=== PATIENT | male | born 1995 | race Caucasian/White ===

== ENCOUNTER 2017-02-26 14:08 | Emergency (ER) | payer OTHER ==
[~2017-02-26] VITALS: Ht 182.9 cm; Wt 78.5 kg
[~2017-02-26 14:08] MED LIST: AMPH10CA3 PO
[2017-02-26 14:25] VITALS: TEMP 36.6; Ht 182.9 cm; Wt 78.5 kg
[2017-02-26 15:06] LABS: BASO % 0.3 %; BASO ABS # 0.03 K/uL (0-0.2); COMPLETE YES; EOS % 0.9 %; HEMATOCRIT 42.6 % (42-52); IG% 0.2 %; LYMPH % 13.1 %; LYMPH ABS # 1.15 K/uL (1.2-3.4); MEAN CELL VOLUME 92.6 fL (80-100); MEAN CORPUSCULAR HEMOGLOBIN 32.6 pg (25-34); MEAN CORPUSCULAR HGB CONC 35.2 g/dl (32-36); MEAN PLATELET VOLUME 9.1 fL (7.4-10.4); MONO % 7.2 %; NEUT % 78.3 %; PLATELET COUNT 232 K/uL (130-400)
[2017-02-26 15:07] VITALS: O2SAT 99
[2017-02-26 15:29] LABS: CALCIUM 9.1 mg/dl (8.5-10.1)
[2017-02-26] MEDS ORDERED: AMPH20TA2 PO (15:38)
[2017-02-26 15:50] LABS: BUN/CREATININE RATIO 9.8 (10-20); CREATININE 0.83 mg/dl (0.60-1.40); POTASSIUM 4.2 mmol/L (3.5-5.1)
[2017-02-26] MEDS ORDERED: OPTIRAY 320 IV PRN (16:15)
--- NOTE | 2017-02-26 16:49 | DIAGNOSTIC IMAGING REPORT ---
CT ANGIOGRAPHY OF THE CHEST, PULMONARY EMBOLUS PROTOCOL CLINICAL HISTORY: Chest pain. COMPARISON STUDY: No previous studies for comparison. TECHNIQUE: Following IV administration of 95 mL of Optiray-320, helical axial images of the chest were obtained utilizing the pulmonary embolus protocol. Maximal intensity projections and sagittal and coronal reformats were viewed on an independent 3D workstation. IV contrast was administered without complication. CT DOSE: 292.01 mGy.cm FINDINGS: No pulmonary emboli are identified. There is no evidence of thoracic aortic dissection. The size of the heart is normal. There is no pericardial effusion. There is no pneumomediastinum. No enlarged thoracic lymph nodes are present. There is a trace left pleural effusion. Associated opacity favors atelectasis. There is no airspace consolidation to suggest pneumonia. Central airways are patent. Bony thorax and upper abdomen are unremarkable. IMPRESSION: 1. No pulmonary emboli identified. 2. Trace left pleural effusion. Electronically signed by: Rob Castaneda M.D. 02/26/2017 4:47 PM Dictated Date/Time: 02/26/2017 4:41 PM
--- NOTE | 2017-02-26 17:31 | EMERGENCY ROOM VISIT NOTE ---
History Report prepared by Tish: Carlita Lua Under the Supervision of: Dr. Benjamin Trivedi D.O. First contact with patient: 14:30 Chief Complaint: CARDIAC ASSESSMENT Stated Complaint: CHEST PAIN History of Present Illness The patient is a 21 year old male who presents to the Emergency Room with complaints of persistent left sided chest pain that began four days ago. He currently rates his discomfort as a 5/10 in severity. The patient states that on Friday night he was wrestling and then developed left sided chest pain the next day. He states that his pain is worsened with coughing or laughing. The patient describes his pain as a tightness in his left chest, but states that when he coughs or laughs, he develops a sharp stabbing pain. The patient states that he went to [facility] today and was referred to the emergency department for further testing. He states that he had a chest x-ray done, but no blood work. The patient states that two weeks ago he flew back from [place]. The patient denies any pain or swelling to his lower extremities. He states that his grandmother from heart disease. Source of History: patient Onset: four days ago Position: chest (left) Symptom Intensity: 5/10 Quality: sharp, stabbing, other (tightness) Timing: other (persistent) Review of Systems See HPI for pertinent positives & negatives. A total of 10 systems reviewed and were otherwise negative. Past Medical & Surgical Medical Problems: (1) No Known Active Medical Problems Family History Heart disease Social History Smoking Status: Current Every Day Smoker Marital Status: single Housing Status: lives with roommate Occupation Status: [employer] student Current/Historical Medications Scheduled Amphetamine-Dextroamphetamine 20MG (Adderall 20MG), 20 MG PO BID Allergies Coded Allergies: No Known Allergies (Unverified , 02/26/17) Physical Exam Vital Signs Date Time Temp Pulse Resp B/P Pulse Ox O2 Delivery O2 Flow Rate FiO2 02/26/17 17:12 73 16 97 Room Air 02/26/17 16:05 65 18 127/99 99 Room Air 02/26/17 15:18 99 Room Air 02/26/17 15:14 72 02/26/17 15:07 69 16 126/80 98 Room Air 02/26/17 15:07 99 Room Air 02/26/17 14:25 36.6 76 18 123/75 98 Room Air Physical Exam CONSTITUTIONAL/VITAL SIGNS: Reviewed / noted above. GENERAL: Non-toxic in appearance. INTEGUMENTARY: Warm, dry, and [place]. HEAD: Normocephalic. EYES: without scleral icterus or trauma. ENT/OROPHARYNX: clear and moist. LYMPHADENOPATHY/NECK: Is supple without lymphadenopathy or meningismus. RESPIRATORY: Lungs clear and equal. CARDIOVASCULAR: Regular rate and rhythm. GI/ABDOMEN: Soft and nontender. No organomegaly or pulsatile mass. No rebound or guarding. Normal bowel sounds. EXTREMITIES: Warm and well perfused. BACK: No CVA tenderness. NEUROLOGICAL: Intact without focal deficits. PSYCHIATRIC: normal affect. MUSCULOSKELETAL: Normally developed with good muscle tone. Medical Decision & Procedures ER Provider Diagnostic Interpretation: CT results as stated below per my review and radiologist interpretation: CT ANGIOGRAPHY OF THE CHEST, PULMONARY EMBOLUS PROTOCOL CLINICAL HISTORY: Chest pain. COMPARISON STUDY: No previous studies for comparison. TECHNIQUE: Following IV administration of 95 mL of Optiray-320, helical axial images of the chest were obtained utilizing the pulmonary embolus protocol. Maximal intensity projections and sagittal and coronal reformats were viewed on an independent 3D workstation. IV contrast was administered without complication. CT DOSE: 292.01 mGy.cm FINDINGS: No pulmonary emboli are identified. There is no evidence of thoracic aortic dissection. The size of the heart is normal. There is no pericardial effusion. There is no pneumomediastinum. No enlarged thoracic lymph nodes are present. There is a trace left pleural effusion. Associated opacity favors atelectasis. There is no airspace consolidation to suggest pneumonia. Central airways are patent. Bony thorax and upper abdomen are unremarkable. IMPRESSION: 1. No pulmonary emboli identified. 2. Trace left pleural effusion. Electronically signed by: Rob Castaneda M.D. 02/26/2017 4:47 PM Dictated Date/Time: 02/26/2017 4:41 PM Laboratory Results 02/26/17 14:50 Red Blood Count 4.60, Mean Corpuscular Volume 92.6, Mean Corpuscular Hemoglobin 32.6, Mean Corpuscular Hemoglobin Concent 35.2, Mean Platelet Volume 9.1, Neutrophils (%) (Auto) 78.3, Lymphocytes (%) (Auto) 13.1, Monocytes (%) (Auto) 7.2, Eosinophils (%) (Auto) 0.9, Basophils (%) (Auto) 0.3, Neutrophils # (Auto) 6.89, Lymphocytes # (Auto) 1.15, Monocytes # (Auto) 0.63, Eosinophils # (Auto) 0.08, Basophils # (Auto) 0.03 02/26/17 14:50 Test 02/26/17 14:50 02/26/17 14:52 White Blood Count 8.80 K/uL (4.8-10.8) Red Blood Count 4.60 M/uL (4.7-6.1) Hemoglobin 15.0 g/dL (14.0-18.0) Hematocrit 42.6 % (42-52) Mean Corpuscular Volume 92.6 fL (80-100) Mean Corpuscular Hemoglobin 32.6 pg (25-34) Mean Corpuscular Hemoglobin Concent 35.2 g/dl (32-36) Platelet Count 232 K/uL (130-400) Mean Platelet Volume 9.1 fL (7.4-10.4) Neutrophils (%) (Auto) 78.3 % Lymphocytes (%) (Auto) 13.1 % Monocytes (%) (Auto) 7.2 % Eosinophils (%) (Auto) 0.9 % Basophils (%) (Auto) 0.3 % Neutrophils # (Auto) 6.89 K/uL (1.4-6.5) Lymphocytes # (Auto) 1.15 K/uL (1.2-3.4) Monocytes # (Auto) 0.63 K/uL (0.11-0.59) Eosinophils # (Auto) 0.08 K/uL (0-0.5) Basophils # (Auto) 0.03 K/uL (0-0.2) RDW Standard Deviation 41.7 fL (36.4-46.3) RDW Coefficient of Variation 12.3 % (11.5-14.5) Immature Granulocyte % (Auto) 0.2 % Immature Granulocyte # (Auto) 0.02 K/uL (0.00-0.02) Anion Gap 4.0 mmol/L (3-11) Est Creatinine Clear Calc Drug Dose 153.3 ml/min Estimated GFR () 144.8 Estimated GFR (Non- 124.9 BUN/Creatinine Ratio 9.8 (10-20) Calcium Level 9.1 mg/dl (8.5-10.1) Bedside D-Dimer > 450 ng/mlFEU (0-450) Bedside Troponin I 0.000 ng/ml (0-0.045) Laboratory results as stated above per my review. ECG Indication: chest pain Rate (beats per minute): 66 Rhythm: normal sinus Findings: no acute ischemic change, no ectopy ED Course 1435: Previous medical records were reviewed. The patient was evaluated in room B5. A complete history and physical examination was performed. 1733: I reevaluated the patient and he is resting comfortably. I discussed the exam findings with him and I discussed the treatment plan. He verbalized complete understanding and agreement. He is ready to go home. Medical Decision the differential was considered includes acute myocardial infarction, acute coronary syndrome, myocarditis, pericarditis, pericardial effusions /tamponade, esophageal perforation, thoracic aortic dissection, pulmonary embolism, pneumonia, pneumothorax, pancreatitis, shingles, acute cholecystitis, perforated abdominal viscus. This is a 21-year-old male who presents to the ED with a chief complaint of tightness in his chest in addition to a stabbing pain when he coughs last. This is been ongoing for the past 3-4 days. The patient states that his symptoms started after he was wrestling Friday night. The patient also reports recent return from a trip to [place] a couple weeks ago. He was sent over from urgent care to rule out PE. He had a chest x-ray there that was unremarkable. CBC is normal. Troponin is negative. D-dimer is elevated. Chemistry panel was unremarkable. Twelve-lead EKG reveals a normal sinus rhythm at a rate of 66. No acute injury or ectopy. CT scan of the chest did not show PE. The patient was told the results. He is felt to be stable for discharge. Impression Primary Impression: Pleuritic chest pain Scribe Attestation The scribe's documentation has been prepared under my direction and personally reviewed by me in its entirety. I confirm that the note above accurately reflects all work, treatment, procedures, and medical decision making performed by me. Departure Information Dispostion Home / Self-Care Referrals No Doctor, Assigned (PCP) Forms IMPORTANT VISIT INFORMATION Patient Instructions Chest Pain - [facility], [facility] Additional Instructions Take Tylenol or Motrin as needed for pain. Anticipate improvement of pain over the next week. Return or see your doctor for any concerns.
[2017-02-26 17:49] VITALS: BP 139/74; PULSE 72; O2SAT 97
== END 2017-02-26 17:51 | disposition home or self-care (01) ==
LOC: C.EDB 14:09
DX: R07.81 Pleurodynia (principal); Z82.49 Family history of ischemic heart disease and other diseases of the circulatory system; F17.210 Nicotine dependence, cigarettes, uncomplicated; Z79.899 Other long term (current) drug therapy

== ENCOUNTER 2017-11-21 01:08 | Emergency (ER) | payer OTHER ==
[~2017-11-21] VITALS: Ht 182.9 cm; Wt 82.6 kg
[~2017-11-21 01:08] MED LIST changes: -AMPH10CA3 PO; +AMPH20TA2 PO
[2017-11-21 01:18] VITALS: TEMP 36.7; Ht 182.9 cm; Wt 82.6 kg
[2017-11-21] MEDS ORDERED: XYLOCAINE 1%/SOD BICARB 20 ML VIAL INFIL ONE (02:15)
[2017-11-21 02:27] LABS: BASO % 0.2 %; BASO ABS # 0.02 K/uL (0-0.2); EOS % 0.4 %; EOS ABS # 0.03 K/uL (0-0.5); HEMATOCRIT 46.4 % (42-52); HEMOGLOBIN 17.2 g/dL (14.0-18.0); IG# 0.03 K/uL (0.00-0.02); LYMPH % 16.9 %; MEAN CELL VOLUME 86.9 fL (80-100); MEAN CORPUSCULAR HEMOGLOBIN 32.2 pg (25-34); MEAN CORPUSCULAR HGB CONC 37.1 g/dl (32-36); MEAN PLATELET VOLUME 9.6 fL (7.4-10.4); MONO % 5.2 %; MONO ABS # 0.43 K/uL (0.11-0.59); NEUT % 76.9 %; NEUT ABS # 6.37 K/uL (1.4-6.5); PLATELET COUNT 241 K/uL (130-400); RED CELL DISTRIBUTION WIDTH CV 11.8 % (11.5-14.5); RED CELL DISTRIBUTION WIDTH SD 37.5 fL (36.4-46.3); WHITE BLOOD COUNT 8.28 K/uL (4.8-10.8)
[2017-11-21 02:44] LABS: ALBUMIN 4.5 gm/dl (3.4-5.0); CALCIUM 8.6 mg/dl (8.5-10.1); CREATININE 0.75 mg/dl (0.60-1.40); POTASSIUM 3.2 mmol/L (3.5-5.1)
[2017-11-21 02:47] LABS: TOTAL PROTEIN 8.5 gm/dl (6.4-8.2)
[2017-11-21 05:11] VITALS: BP 114/82; PULSE 112; O2SAT 98
--- NOTE | 2017-11-21 06:29 | DIAGNOSTIC IMAGING REPORT ---
HEAD WITHOUT CONTRAST (CT) CT DOSE: 1150.07 mGy.cm HISTORY: Trauma Etoh. Fall. TECHNIQUE: Multiaxial CT images of the head were performed without the use of intravenous contrast. A dose lowering technique was utilized adhering to the principles of ALARA. Comparison: None. Findings: The paranasal sinuses and mastoid air cells are clear. The calvarium and skull base are intact. The ventricles and sulci are within normal limits. There is no mass, hematoma, midline shift, or acute infarct. Undisplaced fracture tip nasal bones Impression: Negative CT of the brain. Nondisplaced fracture tip nasal bones. The above report was generated using voice recognition software. It may contain grammatical, syntax or spelling errors. Electronically signed by: Buck Little M.D. 11/21/2017 6:28 AM Dictated Date/Time: 11/21/2017 6:27 AM
--- NOTE | 2017-11-21 06:42 | DIAGNOSTIC IMAGING REPORT ---
CT OF THE CERVICAL SPINE CLINICAL HISTORY: Neck pain status post trauma. Ethanol intoxication. COMPARISON STUDY: No previous studies for comparison. CT DOSE: TECHNIQUE: CT scan of the cervical spine was performed from the skull base to the thoracic inlet. Images are reviewed in the axial, sagittal, and coronal planes. IV contrast was not administered for this examination. A dose lowering technique was utilized adhering to the principles of ALARA. FINDINGS: The visualized portions of the lung apices reveal no evidence of pneumothorax. The prevertebral soft tissues are normal. No fractures or subluxations are visualized. IMPRESSION: No evidence of acute fracture or traumatic subluxation. Electronically signed by: Tesfaye Connell M.D. 11/21/2017 6:40 AM Dictated Date/Time: 11/21/2017 6:39 AM
--- NOTE | 2017-11-21 06:50 | DIAGNOSTIC IMAGING REPORT ---
FACIAL BONES-MXILLOFAC WITHOUT CT DOSE: HISTORY: Trauma Etoh. Fall. TECHNIQUE: Multiaxial CT images of the maxillofacial region were performed and reformatted in the coronal plane without the use of contrast. A dose lowering technique was utilized adhering to the principles of ALARA. COMPARISON: None. FINDINGS: The visualized cervical spine, skull base, pterygoid plates, lamina papyracea, orbital floors, mandible, and zygomatic arches are intact. No fractures. Nondisplaced fracture tip nasal bones. The orbits are unremarkable. IMPRESSION: Nondisplaced fracture nasal bones. Otherwise negative study. The above report was generated using voice recognition software. It may contain grammatical, syntax or spelling errors. Electronically signed by: Buck Little M.D. 11/21/2017 6:48 AM Dictated Date/Time: 11/21/2017 6:47 AM
--- NOTE | 2017-11-21 06:58 | DIAGNOSTIC IMAGING REPORT ---
CHEST ONE VIEW PORTABLE CLINICAL HISTORY: Etoh. Fall. Trauma COMPARISON STUDY: No previous studies for comparison. FINDINGS: The bones soft tissues and hemidiaphragms are normal. The cardiomediastinal silhouette is normal. The lungs are clear. The pulmonary vasculature is normal. IMPRESSION: Negative chest. The above report was generated using voice recognition software. It may contain grammatical, syntax or spelling errors. Electronically signed by: Buck Little M.D. 11/21/2017 6:57 AM Dictated Date/Time: 11/21/2017 6:55 AM
--- NOTE | 2017-11-25 01:10 | EMERGENCY ROOM VISIT NOTE ---
History First contact with patient: 01:52 Chief Complaint: FACIAL PAIN/INJURY Stated Complaint: FALL/ALCOHOL OVERDOSE History of Present Illness The patient is a 22 year old male who presents to the Emergency Room with complaints of facial injury after falling tonight. The patient was evidently climbing a chain-link fence, lost his balance, fell, and injured his face. The patient has been drinking alcohol tonight. He primarily complains of mouth pain where he has a laceration. He does not report significant head or neck pain. No extremity injury. The patient considers himself usually healthy and does not have other complaints. He believes he is up-to-date on his tetanus. Much of the history is limited as the patient is intoxicated. Review of Systems More than 10 systems were reviewed and otherwise negative with the exception of history of present illness. Past Medical/Surgical History Medical Problems: (1) No Known Active Medical Problems Family History Heart disease Social History Smoking Status: Unknown if Ever Smoked Marital Status: single Housing Status: lives with roommate Occupation Status: [employer] student Current/Historical Medications Scheduled Amphetamine-Dextroamphetamine 20MG (Adderall 20MG), 20 MG PO BID Physical Exam Vital Signs Date Time Temp Pulse Resp B/P (MAP) Pulse Ox O2 Delivery O2 Flow Rate FiO2 11/21/17 05:11 112 18 114/82 98 Room Air 11/21/17 04:50 95 18 145/94 99 Room Air 11/21/17 03:51 105 18 130/70 97 Room Air 11/21/17 01:18 36.7 96 17 154/84 99 Room Air 11/21/17 01:15 103 Physical Exam VITALS: Vitals are noted on the nurse's note and reviewed by myself. Vital signs stable. GENERAL: Well-developed, well-nourished, white male who appears intoxicated on examination. HEAD: Superficial abrasions appreciated across the forehead. No crespo sign or raccoon eyes EARS: External ear normal. External auditory canals clear, tympanic membranes pearly agee without erythema or effusion bilaterally. No hemotympanum EYES: Pupils equal round and reactive to light and accommodation. Conjunctivae without injection, sclerae without icterus. Extraocular movements intact. No hyphema NOSE: Edema appreciated over the bridge of the nose with tenderness. There is mild blood in the bilateral nares but no septal hematoma or active bleed MOUTH: Mucous membranes moist. Tonsils are not enlarged. Pharynx without erythema, blood, or exudate. Uvula midline. Airway patent. Dentition appears in good repair. The lower lip is with a 2.6 cm fairly linear laceration just inferior to the vermilion border. This will require suturing as it does gape. NECK: Supple without nuchal rigidity. No lymphadenopathy. No thyromegaly. Cervical spine is nontender. HEART: Regular rate and rhythm without murmurs gallops or rubs. LUNGS: Clear to auscultation bilaterally without wheezes, rales or rhonchi. No retractions or accessory muscle use. ABDOMEN: Positive normal bowel sounds x 4. Soft, nontender, without masses or organomegaly. No guarding or rebound tenderness. MUSCULOSKELETAL: No muscle atrophy, erythema, or edema noted. Full range of motion without joint tenderness in all extremities. No tenderness to palpation. Normal gait. Strength 5/5 throughout. NEURO: Patient was alert and oriented to person place and time. CN II through XII grossly intact. No focal neurological deficits. Deep tendon reflexes 2+ throughout. SKIN: The skin was without rashes, erythema, edema, or bruising. Capillary refill less than 2 seconds. Medical Decision & Procedures ER Provider Diagnostic Interpretation: HEAD WITHOUT CONTRAST (CT) CT DOSE: 1150.07 mGy.cm HISTORY: Trauma Etoh. Fall. TECHNIQUE: Multiaxial CT images of the head were performed without the use of intravenous contrast. A dose lowering technique was utilized adhering to the principles of ALARA. Comparison: None. Findings: The paranasal sinuses and mastoid air cells are clear. The calvarium and skull base are intact. The ventricles and sulci are within normal limits. There is no mass, hematoma, midline shift, or acute infarct. Undisplaced fracture tip nasal bones Impression: Negative CT of the brain. Nondisplaced fracture tip nasal bones. FACIAL BONES-MXILLOFAC WITHOUT CT DOSE: HISTORY: Trauma Etoh. Fall. TECHNIQUE: Multiaxial CT images of the maxillofacial region were performed and reformatted in the coronal plane without the use of contrast. A dose lowering technique was utilized adhering to the principles of ALARA. COMPARISON: None. FINDINGS: The visualized cervical spine, skull base, pterygoid plates, lamina papyracea, orbital floors, mandible, and zygomatic arches are intact. No fractures. Nondisplaced fracture tip nasal bones. The orbits are unremarkable. IMPRESSION: Nondisplaced fracture nasal bones. Otherwise negative study. CT OF THE CERVICAL SPINE CLINICAL HISTORY: Neck pain status post trauma. Ethanol intoxication. COMPARISON STUDY: No previous studies for comparison. CT DOSE: TECHNIQUE: CT scan of the cervical spine was performed from the skull base to the thoracic inlet. Images are reviewed in the axial, sagittal, and coronal planes. IV contrast was not administered for this examination. A dose lowering technique was utilized adhering to the principles of ALARA. FINDINGS: The visualized portions of the lung apices reveal no evidence of pneumothorax. The prevertebral soft tissues are normal. No fractures or subluxations are visualized. CHEST ONE VIEW PORTABLE CLINICAL HISTORY: Etoh. Fall. Trauma COMPARISON STUDY: No previous studies for comparison. FINDINGS: The bones soft tissues and hemidiaphragms are normal. The cardiomediastinal silhouette is normal. The lungs are clear. The pulmonary vasculature is normal. IMPRESSION: Negative chest. Laboratory Results 11/21/17 02:16 Red Blood Count 5.34, Mean Corpuscular Volume 86.9, Mean Corpuscular Hemoglobin 32.2, Mean Corpuscular Hemoglobin Concent 37.1, Mean Platelet Volume 9.6, Neutrophils (%) (Auto) 76.9, Lymphocytes (%) (Auto) 16.9, Monocytes (%) (Auto) 5.2, Eosinophils (%) (Auto) 0.4, Basophils (%) (Auto) 0.2, Neutrophils # (Auto) 6.37, Lymphocytes # (Auto) 1.40, Monocytes # (Auto) 0.43, Eosinophils # (Auto) 0.03, Basophils # (Auto) 0.02 11/21/17 02:16 Test 11/21/17 02:16 White Blood Count 8.28 K/uL (4.8-10.8) Red Blood Count 5.34 M/uL (4.7-6.1) Hemoglobin 17.2 g/dL (14.0-18.0) Hematocrit 46.4 % (42-52) Mean Corpuscular Volume 86.9 fL (80-100) Mean Corpuscular Hemoglobin 32.2 pg (25-34) Mean Corpuscular Hemoglobin Concent 37.1 g/dl (32-36) Platelet Count 241 K/uL (130-400) Mean Platelet Volume 9.6 fL (7.4-10.4) Neutrophils (%) (Auto) 76.9 % Lymphocytes (%) (Auto) 16.9 % Monocytes (%) (Auto) 5.2 % Eosinophils (%) (Auto) 0.4 % Basophils (%) (Auto) 0.2 % Neutrophils # (Auto) 6.37 K/uL (1.4-6.5) Lymphocytes # (Auto) 1.40 K/uL (1.2-3.4) Monocytes # (Auto) 0.43 K/uL (0.11-0.59) Eosinophils # (Auto) 0.03 K/uL (0-0.5) Basophils # (Auto) 0.02 K/uL (0-0.2) RDW Standard Deviation 37.5 fL (36.4-46.3) RDW Coefficient of Variation 11.8 % (11.5-14.5) Immature Granulocyte % (Auto) 0.4 % Immature Granulocyte # (Auto) 0.03 K/uL (0.00-0.02) Anion Gap 8.0 mmol/L (3-11) Est Creatinine Clear Calc Drug Dose 168.2 ml/min Estimated GFR () 149.9 Estimated GFR (Non- 129.3 BUN/Creatinine Ratio 16.9 (10-20) Calcium Level 8.6 mg/dl (8.5-10.1) Total Bilirubin 0.2 mg/dl (0.2-1) Aspartate Amino Transf (AST/SGOT) 48 U/L (15-37) Alanine Aminotransferase (ALT/SGPT) 63 U/L (12-78) Alkaline Phosphatase 81 U/L (45-117) Total Protein 8.5 gm/dl (6.4-8.2) Albumin 4.5 gm/dl (3.4-5.0) Globulin 4.0 gm/dl (2.5-4.0) Albumin/Globulin Ratio 1.1 (0.9-2) Ethyl Alcohol mg/dL 341.0 mg/dl (0-3) Procedure Laceration repair. Patient elects to have their laceration repaired. Verbal consent was obtained to perform the procedure. There is an abundance of materials available for the procedure. Patient is not allergic to latex. Using sterile technique the wound was cleaned with Betadine. The area was sterilely draped. 3 ml of 1% buffered lidocaine was used to anesthetize the lip laceration. Once the patient was anesthetized, the wound was copiously irrigated under pressure with sterile saline. The wound was explored and there were no deep structures injured such as tendons, bone, or significant blood vessels. The laceration appears through and through into the oropharynx. The laceration was repaired using 4 simple interrupted 6-0 nylon sutures on the outside and a single 60 simple interrupted Vicryl stitch on the inside. The wound edges being well approximated. Hemostasis was achieved. The area was cleaned with sterile saline and dressed with bacitracin ointment and bandage. Patient tolerated the procedure well without complications. Blood loss was negligible. ED Course Physical exam and history were performed. Nursing notes, EMR, and Medication List were personally reviewed. Patient appears to have suffered injuries to his face after drinking alcohol and climbing a fence tonight. The patient fell, causing his injuries. IV access was established and labs were obtained. CT scans were performed. The patient's laceration was fixed as above. The patient's blood work is as above and was reviewed. He does not have a significantly elevated white blood cell count or gross anemia. His electrolytes are not diagnostic. The patient's alcohol is markedly elevated at 341. CT scans do not show acute intracranial bleed or cervical fracture. He does appear to have a nasal bone fracture. The patient remained in stable and steady condition for several hours here in the emergency department. He did slowly sober up and was able to get a sober ride home. The patient was given wound care instructions as he was more sober, and is overall felt well for discharge. He needs to follow with ENT for his nose. He was given wound care instructions. He was otherwise invited back to the ER with any new, worsening, or concerning symptoms. The chart was completed utilizing [email or web address] Speech Voice Recognition Software. Grammatical errors, random word insertions, pronoun errors, and incomplete sentences are an occasional consequence of this system due to software limitations, ambient noise, and hardware issues. Any formal questions or concerns about the content, text, or information contained within the body of this dictation should be directly addressed to the provider for clarification. . Medical Decision Differential diagnosis: Etiologies such as fracture, dislocation, intra-abdominal, pneumothorax, intrathoracic , intracranial, neurologic, as well as other traumatic pathologies were entertained. Impression Primary Impression: Fall Additional Impressions: Nasal bone fracture Alcohol use with intoxication Lip laceration Facial injury Departure Information Dispostion Home / Self-Care Condition GOOD Referrals Pedro Luis Whatley M.D. Forms HOME CARE DOCUMENTATION FORM, IMPORTANT VISIT INFORMATION Patient Instructions My [facility] Additional Instructions You were seen and evaluated today on an emergency basis only. This is not a substitute for, or an effort to provide, complete comprehensive medical care. It is not possible to recognize and treat all injuries or illnesses in a single emergency department visit. For this reason it is recommended that you followup with [facility] this week for ongoing care and evaluation. Keep wound clean and dry. Do not allow any crusting or dried blood to accumulate on sutures. If this occurs, use a mild soap/water on a Q-tip to clean the wound. Do not use Peroxide to clean the wound as this can delay healing Use an antibiotic ointment like Bacitracin for 3-4 days, then let wound dry. You may bathe and shower as normal, but DO NOT SOAK the wound. Suture removal in about 5-7 days with your Family Doctor or in the ER. Return sooner for any signs of infection, increasing redness, swelling, or drainage. For baseline pain relief you may alternate ibuprofen and acetaminophen every 4 hours for pain control. Take 600 mg ibuprofen (Advil) and then 4 hours later take 1000 mg acetaminophen (Tylenol). Do not take more than 3000 mg acetaminophen in a single day. Follow with ear nose and throat if you have concerns about the cosmetic appearance of your nose. We recommend this to occur between 7 and 14 days after your injury You are welcome to return to the emergency department anytime with new, worsening, or concerning symptoms. Problem Qualifiers
== END 2017-11-21 05:23 | disposition home or self-care (01) ==
LOC: EDBD 01:08 → C.EDA 01:11
DX: S02.2XXA Fracture of nasal bones, initial encounter for closed fracture (principal); S01.511A Laceration without foreign body of lip, initial encounter; W17.89XA Other fall from one level to another, initial encounter; Y92.89 Other specified places as the place of occurrence of the external cause; F10.920 Alcohol use, unspecified with intoxication, uncomplicated; Z79.899 Other long term (current) drug therapy

== ENCOUNTER 2018-02-07 03:38 | Emergency (ER) | payer BC, OTHER ==
[~2018-02-07] VITALS: Ht 177.8 cm; Wt 76.0 kg
[2018-02-07 03:45] VITALS: TEMP 36.8; Ht 177.8 cm; Wt 76.0 kg
--- NOTE | 2018-02-07 03:54 | EMERGENCY ROOM VISIT NOTE ---
History First contact with patient: 03:39 Chief Complaint: ALCOHOL OVERDOSE Stated Complaint: ALCOHOL OVERDOSE Nursing Triage Summary: Patient arrived via EMS from [facility]. EMs reports patient was drinking tonight and vomitted on bed. EMS was called by his friends because theyw ere concerned with the amount he vomited. Patient was transported to ED. Patient states he "drank a lot" tonight but could not specify what type of alcohol. History of Present Illness The patient is a 22 year old male who presents to the Emergency Room via EMS for evaluation of alcohol intoxication. Per EMS, patient was at his girlfriend' s house tonight and had multiple episodes of vomiting while in bed. They arrived and initially the patient was going to be kept there, however he began acting belligerent and they transported him here. The patient admits to drinking "a lot" of alcohol tonight, both beer and vodka. He states that he took his Adderall today as prescribed. He denies any illicit drug use. He denies any complaints at this time. He denies any trauma. Review of Systems Review of systems was limited secondary to patient's intoxicated state. Past Medical/Surgical History Medical Problems: (1) No Known Active Medical Problems Family History Heart disease Social History Smoking Status: Never Smoker Marital Status: single Housing Status: lives with roommate Occupation Status: [employer] student Current/Historical Medications Scheduled Amphetamine-Dextroamphetamine 20MG (Adderall 20MG), 20 MG PO BID Physical Exam Vital Signs Date Time Temp Pulse Resp B/P (MAP) Pulse Ox O2 Delivery O2 Flow Rate FiO2 02/07/18 13:28 80 20 125/66 98 02/07/18 10:00 85 20 112/64 98 Room Air 02/07/18 08:00 92 18 95/33 97 Room Air 02/07/18 07:03 95 02/07/18 06:31 97/38 02/07/18 06:06 101 16 91 02/07/18 06:01 122/70 02/07/18 05:43 103 16 02/07/18 05:38 102 18 02/07/18 05:31 110/47 02/07/18 05:01 111/44 02/07/18 04:38 98 16 94 02/07/18 04:31 114/48 02/07/18 04:17 92 16 115/49 94 Room Air 02/07/18 04:15 115/49 02/07/18 04:14 94 Room Air 02/07/18 04:00 95 Room Air 02/07/18 03:45 36.8 104 16 143/92 100 Room Air 02/07/18 03:43 109 02/07/18 03:40 143/92 Physical Exam VITALS: Vitals are noted on the nurse's note and reviewed by myself. Vital signs stable. GENERAL: This is a 22-year-old male, lying prone in bed, appears to be visibly intoxicated, smells of ETOH. SKIN: The skin was without erythema, edema, or bruising. HEAD: Normocephalic atraumatic. EARS: External auditory canals clear. No hemotympanum. EYES: Pupils equal round and reactive to light and accommodation. NOSE: No deformities noted. MOUTH: No loose or chipped teeth. NECK: No cervical spine tenderness. HEART: Regular rate and rhythm without murmurs gallops or rubs. LUNGS: Clear to auscultation bilaterally without wheezes, rales or rhonchi. MUSCULOSKELETAL: Full range of motion throughout. Strength intact throughout. NEURO: Patient was alert and oriented to person place and time. Speech slurred. Gross sensation intact. Patient cooperative with examiner. Medical Decision & Procedures Laboratory Results 02/07/18 03:53 Test 02/07/18 03:53 Anion Gap 6.0 mmol/L (3-11) Est Creatinine Clear Calc Drug Dose 115.2 ml/min Estimated GFR () 118.1 Estimated GFR (Non- 101.9 BUN/Creatinine Ratio 11.0 (10-20) Calcium Level 8.1 mg/dl (8.5-10.1) Ethyl Alcohol mg/dL 381.0 mg/dl (0-3) Medical Decision Differential diagnosis includes alcohol intoxication, drug use, infection, hypoglycemia, head trauma, among others. The patient is a 22-year-old male who presents today for evaluation of probable alcohol intoxication. Labs revealed an alcohol of 381. Kidney function was found to be within normal limits. Labs were otherwise unremarkable. There is no evidence of head trauma or infection on exam. Patient was alert and able to answer questions on my initial exam. The patient was placed on the hardening machine operator and placed in the prone position. They were monitored for an appropriate amount of time and when they were more sober, they were reassessed and discharged home with a sober ride. The patient was advised not to drink anymore alcohol today and to follow-up with [facility] services for any further concerns. Medication Reconcilliation Current Medication List: was personally reviewed by me Blood Pressure Screening Patient's blood pressure: Low blood pressure Impression Primary Impression: Alcoholic intoxication Departure Information Dispostion Home / Self-Care Condition GOOD Referrals [facility] (PCP) Patient Instructions My [facility] Additional Instructions You were evaluated in emergency department for intoxication. This is a sign of Alcohol Abuse and should not be taken lightly. You had a blood alcohol level that was significantly elevated. Over the next 24 hours keep well hydrated and eat light meals. Don't drink any more alcohol. This is important. Please discuss this visit with your Primary Care Provider, [facility] and/or your loved ones. Unless an exceptional circumstance, the Hospital DOES NOT contact anyone during your visit, nor is your Protected Medical Information released to anyone without your approval/request. This means we do not contact your Parents, the Police, [facility], etc. However, you will likely receive a bill from the Hospital and/or your Insurance company, which will usually be sent to the Primary Policy Salda[place] (often one's Parents) If your incident was on campus, or if the Police were involved, they will often contact the University to make them aware of what happened. Often this will result in you being required to take Alcohol Education classes (ie BASICS class) . Please see information given to you at discharge regarding contact for this. Call 911 or return to Emergency Department if you develop: Passing out, difficulty breathing, many episodes of vomiting, blood in vomit or stool, abdominal pain, fevers, or other severe symptoms. We are always here to help if you feel you need further evaluation or treatment. Problem Qualifiers Primary Impression: Alcoholic intoxication Complication of substance-induced condition: uncomplicated Qualified Codes: F10.920 - Alcohol use, unspecified with intoxication, uncomplicated
[2018-02-07 04:14] VITALS: O2SAT 94
[2018-02-07 04:18] LABS: CALCIUM 8.1 mg/dl (8.5-10.1); CREATININE 1.03 mg/dl (0.60-1.40); POTASSIUM 3.4 mmol/L (3.5-5.1)
[2018-02-07 13:28] VITALS: BP 125/66; PULSE 80; O2SAT 98
--- NOTE | 2018-02-07 15:37 | EMERGENCY ROOM VISIT NOTE ---
ED Visit Note First contact with patient: 09:07 Patient was signed out to me by Efraín WATKINS due to change of shift. Please see her dictation for full history and physical. Patient remained stable throughout the morning. He did wake midmorning. He denies any further complaints. He admitted to drinking a large amount of agee goose vodka. Alcohol intoxication discharge instructions were given. [facility] instructions were also given. Maintain hydration. Tylenol and Motrin every 6 hours as needed for discomfort. No driving until after 3:30 PM. Return to the ED for any acute changes. Current/Historical Medications Scheduled Amphetamine-Dextroamphetamine 20MG (Adderall 20MG), 20 MG PO BID Allergies Coded Allergies: No Known Allergies (Unverified , 02/07/18) Vital Signs Date Time Temp Pulse Resp B/P (MAP) Pulse Ox O2 Delivery O2 Flow Rate FiO2 02/07/18 13:28 80 20 125/66 98 02/07/18 10:00 85 20 112/64 98 Room Air 02/07/18 08:00 92 18 95/33 97 Room Air 02/07/18 07:03 95 02/07/18 06:31 97/38 02/07/18 06:06 101 16 91 02/07/18 06:01 122/70 02/07/18 05:43 103 16 02/07/18 05:38 102 18 02/07/18 05:31 110/47 02/07/18 05:01 111/44 02/07/18 04:38 98 16 94 02/07/18 04:31 114/48 02/07/18 04:17 92 16 115/49 94 Room Air 02/07/18 04:15 115/49 02/07/18 04:14 94 Room Air 02/07/18 04:00 95 Room Air 02/07/18 03:45 36.8 104 16 143/92 100 Room Air 02/07/18 03:43 109 02/07/18 03:40 143/92 Laboratory Results 02/07/18 03:53 Test 02/07/18 03:53 Anion Gap 6.0 mmol/L (3-11) Est Creatinine Clear Calc Drug Dose 115.2 ml/min Estimated GFR () 118.1 Estimated GFR (Non- 101.9 BUN/Creatinine Ratio 11.0 (10-20) Calcium Level 8.1 mg/dl (8.5-10.1) Ethyl Alcohol mg/dL 381.0 mg/dl (0-3) Departure Information Impression Primary Impression: Alcoholic intoxication Dispostion Home / Self-Care Condition GOOD Referrals [facility] Forms ALCOHOL OVERDOSE (21 OR Older), HOME CARE DOCUMENTATION FORM, MOTRIN USE, TYLENOL USE, IMPORTANT VISIT INFORMATION Patient Instructions My [facility]: [employer] Students and Alcohol Related Visits Additional Instructions You were evaluated in emergency department for intoxication. This is a sign of Alcohol Abuse and should not be taken lightly. You had a blood alcohol level that was significantly elevated. Over the next 24 hours keep well hydrated and eat light meals. Don't drink any more alcohol. This is important. Please discuss this visit with your Primary Care Provider, [facility] and/or your loved ones. Unless an exceptional circumstance, the Hospital DOES NOT contact anyone during your visit, nor is your Protected Medical Information released to anyone without your approval/request. This means we do not contact your Parents, the Police, [facility], etc. However, you will likely receive a bill from the Hospital and/or your Insurance company, which will usually be sent to the Primary Policy Salda[place] (often one's Parents) If your incident was on campus, or if the Police were involved, they will often contact the University to make them aware of what happened. Often this will result in you being required to take Alcohol Education classes (ie BASICS class) . Please see information given to you at discharge regarding contact for this. Call 911 or return to Emergency Department if you develop: Passing out, difficulty breathing, many episodes of vomiting, blood in vomit or stool, abdominal pain, fevers, or other severe symptoms. We are always here to help if you feel you need further evaluation or treatment.
== END 2018-02-07 15:03 | disposition home or self-care (01) ==
LOC: EDBD 03:38 → C.EDB 03:39
DX: F10.920 Alcohol use, unspecified with intoxication, uncomplicated (principal); Y90.8 Blood alcohol level of 240 mg/100 ml or more; R03.1 Nonspecific low blood-pressure reading; Z82.49 Family history of ischemic heart disease and other diseases of the circulatory system